=== PATIENT | female | born 1985 | race American Indian/Alaskan Native ===

== ENCOUNTER 2017-01-05 08:08 | Day surgery (SDC) | payer OTHER, MEDICAID ==
--- NOTE | 2017-01-04 21:25 | History and Physical Report ---
History of Present Illness Date of examination: 01/04/17 Chief complaint: Discordant pap smear and colposcopic biopsies History of present illness: Pt is a 31 year old -Cypriot female who presents for further evaluation of discordant pap smear and colposcopic biopsies. Her pap smear on showed High-grade squamous intraepithelial neoplasia, but her colposcopic biopsies showed only acute and chronic cervicitis and squamous metaplasia. Past History Past Medical History: lung disease (bronchitis, most recent exacerbation in October 2016), other (obesity) Past Surgical History: no surgical history [employer] History: abnormal PAP smear (per HPI) Family/Genetic History: diabetes, heart disease, hypertension Social history: - Obstetrical History : 3 Medications and Allergies Allergies Allergy/AdvReac Type Severity Reaction Status Date / Time banana Allergy lips Verified 12/30/16 15:56 swell, mouth itches melon Allergy lips Verified 12/30/16 15:56 swell, mouth itches pecan nut Allergy lips Verified 12/30/16 15:56 swell, mouth itches walnut Allergy lips Verified 12/30/16 15:56 swell, mouth itches almond Allergy lips Uncoded 12/30/16 15:56 swell, mouth itches Home Medications Medication Instructions Recorded Confirmed Last Taken Type ALBUTEROL Inhaler [Proair] 2 puff IH QID PRN 12/30/16 12/30/16 Unknown History Active Meds: Active Medications Cefazolin Sodium (Ancef/Sterile Water 2 Gm/20 Ml) 2 gm in 20 mls @ 80 mls/hr IV PREOP NR PRN Reason: Protocol Lactated Ringer's (Lactated Ringers) 1,000 mls @ 100 mls/hr IV DIRECT JAREN Review of Systems All systems: negative - Physical Exam Breasts: Positive: deferred Cardiovascular: Regular rate Lungs: Positive: Clear to auscultation Abdomen: Positive: soft (obese) Extremities: Positive: normal Results All other labs normal. Assessment and Plan A: HSIL pap with discordant colposcopic biopsies P: Proceed with Loop Electrosurgical Excision Procedure (LEEP) and other indicated procedures.
[~2017-01-05 08:08] MED LIST: ANCEF/STERILE WATER 2 GM/20 ML 2 GM/20 ML SYRINGE IV NR; LACTATED RINGERS 1,000 ML IV SCH
--- NOTE | 2017-01-05 09:21 | Anesthesia Consultation ---
Anesthesia Consult and Med Hx Date of service: 01/05/17 - Airway Anesthetic Teeth Evaluation: Good ROM Head & Neck: Adequate Mental/Hyoid Distance: Adequate Mallampati Class: Class II Intubation Access Assessment: Probably Good - Pulmonary Exam CTA: Yes - Cardiac Exam Cardiac Exam: RRR - Pre-Operative Health Status ASA Pre-Surgery Classification: ASA2 Proposed Anesthetic Plan: General - Pulmonary Hx Asthma: No - Cardiovascular System Hx Hypertension: No - Central Nervous System Hx Seizures: No Hx Psychiatric Problems: No - Endocrine Hx Renal Disease: No Hx Hypothyroidism: No Hx Hyperthyroidism: No - Hematic Hx Anemia: No Hx Sickle Cell Disease: No - Other Systems Hx Alcohol Use: Yes (occas) Hx Cancer: No Hx Obesity: Yes
--- NOTE | 2017-01-05 09:22 | Anesthesia Day of Surgery ---
Anesthesia Day of Surgery - Day of Surgery Patient Examined: Yes Patient H&P Reviewed: Yes Patient is NPO: Yes
[2017-01-05 09:48] LABS: Hematocrit 38.5 % (30.3-42.9); Hemoglobin 12.4 gm/dl (10.1-14.3); Mean Corpuscular HGB Conc 32 % (30-34); Mean Corpuscular Hemoglobin 26 pg (28-32); Mean Corpuscular Volume 82 fl (79-97); Platelet Count 265 K/mm3 (140-440); Red Blood Count 4.69 M/mm3 (3.65-5.03); Red Cell Distribution Width 14.5 % (13.2-15.2); White Blood Count 6.6 K/mm3 (4.5-11.0)
[2017-01-05] MEDS ORDERED: DIPRIVAN 10 MG/ML IV ONE (09:59)
[2017-01-05] MEDS ORDERED: PEPCID PO NR (10:00)
[2017-01-05] MEDS ORDERED: VERSED IV NR (10:00)
[2017-01-05] MEDS ORDERED: SUBLIMAZE ONE (10:00)
[2017-01-05] MEDS ORDERED: XYLOCAINE 1%/ EPI 1:100,000 INFILTRATI ONE (10:03)
[2017-01-05] MEDS ORDERED: ACETIC ACID 3% SOLN TP ONE (10:04)
[2017-01-05] MEDS ORDERED: MONSEL'S TP ONE ×2 (10:04→11:10)
[2017-01-05] MEDS ORDERED: LUGOL'S SOLUTION 5% TP ONE ×2 (10:04→10:53)
[2017-01-05] MEDS ORDERED: XYLOCAINE MPF 2% ONE (10:05)
[2017-01-05] MEDS ORDERED: DECADRON ONE (10:07)
[2017-01-05] MEDS ORDERED: ZOFRAN ONE (10:35)
[2017-01-05] MEDS ORDERED: NACL 0.9% 100 ML ONE (10:38)
[2017-01-05] MEDS ORDERED: Vasostrict ONE (10:38)
[2017-01-05] MEDS ORDERED: TORADOL ONE (10:44)
[2017-01-05] MEDS ORDERED: Vasostrict IM ONE (10:51)
[2017-01-05] MEDS ORDERED: ePHEDrine SULFATE ONE (10:51)
[2017-01-05] MEDS ORDERED: NACL 0.9% IV ONE (10:52)
[2017-01-05] MEDS ORDERED: GELFOAM TP ONE ×2 (11:07→11:10)
[2017-01-05] MEDS ORDERED: NACL 0.9% IR ONE (11:10)
[2017-01-05] MEDS: DILAUDID IV PRN ×2 (11:50→12:00)
--- NOTE | 2017-01-05 11:50 | Short Stay Summary ---
Short Stay Documentation Date of service: 01/05/17 - History H&P: dictated Social history: - Allergies and Medications Current Medications: Allergies banana Allergy (Verified 12/30/16 15:56) lips swell, mouth itches melon Allergy (Verified 12/30/16 15:56) lips swell, mouth itches pecan nut Allergy (Verified 12/30/16 15:56) lips swell, mouth itches walnut Allergy (Verified 12/30/16 15:56) lips swell, mouth itches almond Allergy (Uncoded 12/30/16 15:56) lips swell, mouth itches Home Medications Medication Instructions Recorded Confirmed Last Taken Type ALBUTEROL Inhaler [Proair] 2 puff IH QID PRN 12/30/16 01/05/17 01/05/17 08:59 History Active Medications Famotidine (Pepcid) 20 mg PO PREOP NR Stop: 01/05/17 12:00 Last Admin: 01/05/17 09:56 Dose: 20 mg Cefazolin Sodium (Ancef/Sterile Water 2 Gm/20 Ml) 2 gm in 20 mls @ 80 mls/hr IV PREOP NR PRN Reason: Protocol Stop: 01/05/17 23:59 Lactated Ringer's (Lactated Ringers) 1,000 mls @ 100 mls/hr IV DIRECT JAREN Last Admin: 01/05/17 09:56 Dose: 100 mls/hr Midazolam HCl (Versed) 2 mg IV PREOP NR Stop: 01/05/17 23:59 Last Admin: 01/05/17 09:59 Dose: 2 mg - Physical exam Breasts: deferred - Brief post op/procedure progress note Date of procedure: 01/05/17 Pre-op diagnosis: HSIL pap, discordance between pap and colposcopic biopsies Post-op diagnosis: same Procedure: Loop Electrosurgical Excision Procedure (LEEP) Anesthesia: GETA (with LMA ) Findings: Circumferential non-staining area of cervix after application of Lugol's solution Surgeon: ANGÉLICA SOUZA Estimated blood loss: 50-100ml (50 mL) Pathology: list (ectocervix, endocervix) Specimen disposition: to lab Condition: stable - Hospital course Hospital course: Pt tolerated LEEP procedure well. She was observed in the PACU until she met discharge criteria. - Disposition Condition at discharge: Stable Disposition: DC-01 TO HOME OR SELFCARE Short Stay Discharge Plan Activity: other (Nothing in vagina x 4 weeks ) Weight Bearing Status: Full Weight Bearing Diet: regular Follow up with: ANGÉLICA SOUZA MD [Primary Care Provider] - 01/07/17 (Appt already made for 1030 am ) Prescriptions: Ibuprofen [Motrin] 800 mg PO Q8HR PRN #30 tablet PRN Reason: Pain oxyCODONE /ACETAMINOPHEN [Percocet 5/325] 1 tab PO Q6HR PRN #30 tablet PRN Reason: Pain
--- NOTE | 2017-01-05 11:50 | Operative Report ---
Operative Report Operative Report: Date of procedure: January 05, 2017 Preoperative diagnosis: HSIL pap, Discordance between pap smear and colposcopic biopsies Postoperative diagnosis: same Procedure: Loop electrosurgical excision procedure (LEEP) Surgeon: Laina Juan MD Anesthesia: General with LMA Findings: Circumferential non-staining area of cervix after application of Lugol's solution EBL: 50 mL IVF: 700 mL Urine output: 75 mL prior to the procedure Specimens: ectocervix and endocervix each tagged at 12 o clock to pathology Drains: None Complications: None. Counts correct x 2 Disposition: stable to PACU Indication for procedure: Pt is a 31 year old female with HSIL pap smear discordance between pap smear and colposcopic biopsies who presents for further evaluation. Operation in detail: After the risks, benefits, alternatives, and complications were explained to the patient, she gave informed consent for the procedure. She was subsequently taken to the operating room with her IV noted to be running well and placed in the dorsal supine position. SCDs were noted to be in place and functioning. General anesthesia with LMA was induced without difficulty. The patient was then placed in the dorsal lithotomy position and prepped and draped in a normal sterile fashion. A timeout was performed. The bladder was drained of 75 mL of urine prior to the start of the procedure. A coated speculum was then placed in the vagina for visualization of the cervix. The cervix was injected with 5 mL of dilute vasopressin at 12, 3 , 6, and 9 o clock positions. A coated tenaculum was placed on the anterior lip of the cervix. Lugol's solution was then placed on cervix with circumferential non- staining area. A large loop was used to excise an ectocervical specimen which was tagged at 12 o clock. A small loop was used to excise an endocervical specimen which was also tagged at the 12 o clock position and sent to pathology. Rollerball cautery was used to obtain hemostasis of the cervical bed with some difficulty controlling the bleeding at 11 o clock. A figure of eight of 2-0 Vicryl was placed at 11 o clock and hemostasis was noted. Monsel's solution was placed over the cervical bed. A piece of gel foam was then placed over the cervical bed. All instruments were removed from the vagina and the procedure was then ended. The patient was then replaced into the dorsal supine position and extubated without difficulty. She was then taken to the PACU in stable condition. All counts were correct x 2.
[2017-01-05] MEDS ORDERED: DILAUDID ONE (11:53)
--- NOTE | 2017-01-05 12:29 | Post Anesthesia Evaluation ---
- Post Anesthesia Evaluation Patient Participated: Yes Airway Patent: Yes Stable Respiratory Function: Yes Nausea/Vomiting: No Temp > 96.8F: Yes Pain Manageable: Yes Adequeate Hydration: Yes Anesthesia Complications: No
[2017-01-05] MEDS ORDERED: LACTATED RINGERS 1,000 ML IV SCH (13:00)
[2017-01-05] MEDS ORDERED: PERCOCET 5/325 PO ONE (13:00)
[2017-01-05 13:35] VITALS: BP 90/47
== END 2017-01-05 13:20 | disposition home or self-care (01) ==
LOC: OR 08:08
PROVIDERS: ATTEND Obstetrics & Gynecology
DX: D06.1 Carcinoma in situ of exocervix (principal); E66.9 Obesity, unspecified; Z68.34 Body mass index [BMI] 34.0-34.9, adult; Z72.89 Other problems related to lifestyle; Z91.018 Allergy to other foods
CPT/HCPCS: 36415; 57522; 81025; 85027; 86850; 86900; 86901; 88305; 88307; A4649; J0690; J1100; J1170; J1885; J2250; J2405; J2704; J3010; J7120